=== PATIENT | female | born 1975 | race Caucasian/White ===

== ENCOUNTER 2025-01-20 16:25 | Emergency (ER) | payer BC, SELFPAY ==
[2025-01-20 16:31] VITALS: BP 131/84; PULSE 94; RESP 19; TEMP 36.9; O2SAT 99
[2025-01-20 16:33] VITALS: PULSE 80; RESP 20; O2SAT 99; BMI 25.0
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
== END 2025-01-20 20:00 | disposition home or self-care (01) ==
PROVIDERS: Emergency Provider Emergency Medicine; PCP Internal Medicine
DX: S13.4XXA Sprain of ligaments of cervical spine, initial encounter (principal); S09.90XA Unspecified injury of head, initial encounter; S49.92XA Unspecified injury of left shoulder and upper arm, initial encounter; V49.9XXA Car occupant (driver) (passenger) injured in unspecified traffic accident, initial encounter
CPT/HCPCS: 70450; 72125; 73030; 99284